=== PATIENT | male | born 1965 | race African-American/Black ===

== ENCOUNTER 2022-12-11 09:13 | Emergency (ER) | payer BC, SELFPAY ==
[2022-12-11 09:33] VITALS: BP 135/82; PULSE 88; RESP 16; TEMP 36.9; O2SAT 100
--- NOTE | 2022-12-11 09:43 | ED.EYEPROB ---
HPI - Eye Problem General Chief complaint: Eye Problems Stated complaint: left eye irritation Time Seen by Provider: 12/11/22 09:38 Source: patient and RN notes reviewed Mode of arrival: ambulatory Limitations: no limitations History of Present Illness HPI Narrative: Patient presents today complaining of left eye redness. Two days ago he was standing next to someone using a weed eater and a rock hit him in the left eye. Denies any current symptoms to include pain, vision changes, drainage, foreign body sensation, photophobia. He has been applying an ice pack and taking ibuprofen. He is not on a blood thinner or daily aspirin. Related Data Allergies Allergy/AdvReac Type Severity Reaction Status Date / Time No Known Allergies Allergy Verified 12/11/22 09:39 Review of Systems Review of Systems: CONSTITUTIONAL: Denies body aches, fever, chills, or sweats. EYES: Denies visual changes, or discharge.+ left eye redness ENT: Denies rhinorrhea, congestion, sore throat, or otalgia. CARDIOVASCULAR: Denies chest pain, palpitations, or edema. RESPIRATORY: Denies cough or dyspnea. GASTROINTESTINAL: Denies abdominal pain, nausea, vomiting, or diarrhea. GENITOURINARY: Denies dysuria or hematuria. SKIN: Denies rash, itching, or wounds. MUSCULOSKELETAL: Denies back pain, joint pain, or myalgia. NEUROLOGIC: Denies headache, numbness, tingling, or weakness. PSYCH: Denies depression or anxiety. PMFSH Comments At time of signature, I have reviewed and agree with nursing past medical, surgical, social and family history unless otherwise noted. Please see nursing chart for further information. There is no relevant family history pertinent to the presenting complaint Exam Narrative: GENERAL: Well-appearing, well-nourished, and in no acute distress. HEAD: Normocephalic, atraumatic. EYES: EOMI. PERRL. Left eye: Subconjunctival hemorrhage to the lateral half of the eye. Lids and lashes normal. Right eye normal. ENT: Mucous membranes pink and moist. NECK: Normal AROM. . CHEST: No respiratory distress. EXTREMITIES: Normal range of motion. No edema. SKIN: Warm, dry, no rash. Capillary refill normal. Normal skin turgor. NEURO: No focal deficits. Alert and oriented x3. Gait steady. PSYCH: Normal affect. No signs of depression or anxiety. Course Course Level of Care: Express Care Visit Vital Signs Vital signs: Vital Signs Temperature 98.5 F 12/11/22 09:33 Pulse Rate 88 12/11/22 09:33 Respiratory Rate 16 12/11/22 09:33 Blood Pressure 135/82 12/11/22 09:33 Pulse Oximetry 100 12/11/22 09:33 Oxygen Delivery Room Air 12/11/22 09:33 Temperature 98.5 F 12/11/22 09:33 Pulse Rate 88 12/11/22 09:33 Respiratory Rate 16 12/11/22 09:33 Blood Pressure 135/82 12/11/22 09:33 Pulse Oximetry 100 12/11/22 09:33 Oxygen Delivery Room Air 12/11/22 09:33 Reviewed. Pt has been instructed to follow up with his PCP regarding his elevated blood pressure today. MDM - Eye Problem MDM Narrative Medical decision making narrative: Exam consistent with subconjunctival hemorrhage. No prescription medications indicated at this time. Anticipatory guidance given. Differential Diagnosis Differential diagnosis: Likely corneal abrasion, subconjunctival hemorrhage and ruptured globe Critical Care Time Critical Care Time Critical Care Time: No Discharge Plan Discharge Clinical Impression: Subconjunctival hemorrhage of left eye Patient Disposition: Home, Self-Care Condition: Stable Instructions: Subconjunctival Hemorrhage (ED) Additional Instructions: The ruptured blood vessel is in your eye will resolve on their own. If you develop any pain or changes in your vision, please follow-up with an eye doctor. Your blood pressure was elevated above 120/80 today at Urgent Care. This puts you above the threshold for follow up. Please schedule a followup visit with your personal physician as soon
== END 2022-12-11 09:59 | disposition home or self-care (01) ==
PROVIDERS: Emergency Provider Nurse Practitioner
DX: H11.32 Conjunctival hemorrhage, left eye (principal)
CPT/HCPCS: 99202; G0463

== ENCOUNTER 2023-01-05 15:12 | Emergency (ER) | payer BC, SELFPAY ==
[2023-01-05 15:22] VITALS: BP 115/71; PULSE 90; RESP 16; TEMP 37.1; O2SAT 100
--- NOTE | 2023-01-05 15:35 | ED.SKABFB ---
HPI - Skin/Abscess/Foreign Bdy General Chief complaint: Skin/Abscess/Foreign Body Stated complaint: Insect Bite Time Seen by Provider: 01/05/23 15:16 Source: patient Mode of arrival: ambulatory Limitations: no limitations History of Present Illness HPI narrative: Arnaldo is a 57-year-old male patient presenting to clinic today with complaints of an insect sting to his left hand. He has pain and swelling to the left dorsal hand near the 5th digit. This occurred prior to arrival. Denies any difficulty breathing, swallowing, or drooling. Related Data Allergies Allergy/AdvReac Type Severity Reaction Status Date / Time No Known Allergies Allergy Verified 01/05/23 15:21 Review of Systems Review of Systems: Pertinent positives per HPI. Patient denies any fever, chills, headache, visual changes, dizziness, cough, shortness of breath, chest pain, palpitations, nausea, vomiting, diarrhea, constipation, abdominal pain, or any urinary issues. PMFSH Comments At the time of my signature, I reviewed and agree with the nursing past medical, surgical, social, and family history. There is no relevant family history pertinent to the patient complaint. Exam Narrative: General: Well-developed, well nourished, in no apparent distress Head: Normocephalic, atraumatic Eyes: Pupils equally round and reactive to light bilaterally, EOM intact, sclera and conjunctive clear, no discharge, lids normal Ears: TMs intact and clear, ear canals clear, no drainage, grossly hearing normal. Nose: Nares patent, no discharge, no inflammation, no sinus tenderness. Mouth: Oral pharynx without lesions or masses, good dentition, MMM. Neck: Supple, trachea midline, no enlargement of anterior or posterior cervical nodes, no thyroid masses or goiter palpable. Cardio: Regular rate and rhythm, s1 and s2 normal, no murmur appreciated. Resp: Clear to auscultation bilaterally, no rhonchi, rales, wheezing or rubs Integumentary: [place], warm, and dry, insect sting to the left dorsal hand near the 5th finger with mild swelling and itching Course Course Emergency Course: Portions of this record may have been created with voice recognition software. Level of Care: Express Care Visit Vital Signs Vital signs: Vital Signs Temperature 37.1 C 01/05/23 15:22 Pulse Rate 90 01/05/23 15:22 Respiratory Rate 16 01/05/23 15:22 Blood Pressure 115/71 01/05/23 15:22 Pulse Oximetry 100 01/05/23 15:22 Oxygen Delivery Room Air 01/05/23 15:22 Temperature 37.1 C 01/05/23 15:22 Pulse Rate 90 01/05/23 15:22 Respiratory Rate 16 01/05/23 15:22 Blood Pressure 115/71 01/05/23 15:22 Pulse Oximetry 100 01/05/23 15:22 Oxygen Delivery Room Air 01/05/23 15:22 Vital signs reviewed MDM - Skin/Abscess/Foreign Bdy MDM Narrative Medical decision making narrative: At the time of visit patient is resting comfortably on the exam table. I suspect patient has and in general allergic reaction due to an insect sting. Will send in prescription for some prednisone, triamcinolone, and discussed Benadryl. Supportive measures were discussed with the patient he voiced understanding discharge instructions agrees to treatment plan. Differential Diagnosis Differential diagnosis: Likely abscess of skin or subcutaneous tissue, cellulitis, insect bites, contact dermatitis and other (General allergic reaction) Discharge Plan Discharge Clinical Impression: Allergic reaction to insect sting Patient Disposition: Home, Self-Care Condition: Stable Instructions: Antibiotic Form, Insect Bite or Sting (ED), General Allergic Reaction (ED) Additional Instructions: Apply triamcinolone cream as directed Take prednisone as directed May take benadryl 25-50mg every 6 hours as needed for itching. May apply ice pack to the affected area for 20 minutes at a time every 1-2 hours Follow up with your PCP in 3-5 days if symptoms persist or sooner if they w
== END 2023-01-05 15:40 | disposition home or self-care (01) ==
PROVIDERS: Emergency Provider Nurse Practitioner Family
DX: T63.481A Toxic effect of venom of other arthropod, accidental (unintentional), initial encounter (principal)
CPT/HCPCS: 99213; G0463

== ENCOUNTER 2023-02-23 14:32 | Outpatient (CLI) | payer BC, SELFPAY ==
[2023-02-23 15:07] LABS: Basophils Percent Auto 0.6 % (0.2-1.2); Eosinophils Absolute Auto 0.2 K/mm3 (0-0.3); Eosinophils Percent Auto 2.9 % (0-4.4); Hematocrit 41.6 % (42.0-52.0); Hemoglobin 13.1 g/dL (14.0-18.0); Immature Granulocyte Absolute 0.03 K/mm3 (0.00-0.031); Immature Granulocyte Percent A 0.4 % (0-0.5); Lymphocytes Absolute Auto 2.48 K/mm3 (0.9-3.2); Lymphocytes Percent Auto 36.3 % (18.3-44.2); Mean Corpuscular HGB Conc 31.5 g/dl (32-36); Mean Corpuscular Hemoglobin 29.6 pg (26-34); Mean Corpuscular Volume 94.1 fl (80-100); Mean Platelet Volume 9.1 fl (7.4-10.4); Monocytes Absolute Auto 0.6 K/mm3 (0.1-0.6); Monocytes Percent Auto 8.6 % (2.6-8.5); Neutrophils Absolute Auto 3.5 K/mm3 (1.3-6.7); Neutrophils Percent Auto 51.2 % (45.5-73.1); Platelet Count Result 232 k/mm3 (150-375); Red Blood Count 4.42 M/mm3 (4.6-6.20); Red Cell Distribution Width 13.2 % (11.5-14.5); White Blood Count 6.8 K/mm3 (4.5-10.0)
[2023-02-23 17:50] LABS: Alanine Aminotransferase 17 U/L (6-50); Albumin Level 4.2 g/dL (3.5-5.1); Alkaline Phosphatase 160 U/L (38-126); Anion Gap 5 mmol/L (8-16); Aspartate Amino Transferase 28 U/L (17-59); Bilirubin,Total 0.4 mg/dL (0.2-1.3); Blood Urea Nitrogen 18 mg/dL (9-20); Calcium 8.8 mg/dL (8.4-10.2); Carbon Dioxide 27 mmol/L (22-30); Chloride 106 mmol/L (98-107); Cholesterol 220 mg/dL (0-200); Estimated Glomerular Filt Rate > 60; Glucose 85 mg/dL (65-110); HDL Direct 96 mg/dL; Sodium 138 mmol/L (137-145); Triglycerides 64 mg/dL (<150)
[2023-02-23 18:02] LABS: LDL Cholesterol Direct 86 mg/dL
[2023-02-23 18:19] LABS: Prostate Specific Antigen 0.9 ng/mL (< OR = 4.0)
== END 2023-02-23 14:33 | disposition home or self-care (01) ==
PROVIDERS: PCP Nurse Practitioner Family; Visit Provider Nurse Practitioner Family
DX: Z13.220 Encounter for screening for lipoid disorders (principal); Z12.5 Encounter for screening for malignant neoplasm of prostate; R07.9 Chest pain, unspecified
CPT/HCPCS: 36415; 80053; 80061; 84153; 84443; 85025; G0103

== ENCOUNTER 2023-03-28 00:32 | Day surgery (SDC) | payer BC, SELFPAY ==
[2023-03-10 15:32] VITALS: BMI 20.7
[2023-03-28 07:11] VITALS: BP 127/83; PULSE 78; RESP 16; TEMP 36.3; O2SAT 100; BMI 20.5
[2023-03-28] MEDS: LACTATED RINGERS 1,000 ML 150 ML IV CONT ×2 (07:20→08:32)
--- NOTE | 2023-03-28 08:11 | PM.HPGS ---
History of Present Illness History of Present Illness Consent: Risks, benefits, and alternatives have been discussed and questions answered. Patient agrees to proceed with procedure. Chief complaint: neoplasm screening Narrative: Sher Lieberman is a 57 year old male here for first screening colonoscopy Review of Systems Constitutional: Constitutional: Denies headache(s) and Denies weakness Eyes: Eyes: Denies blurry vision ENT: Reports Normal hearing present, Denies headache(s) and Denies neck pain Cardiovascular: Cardiovascular: Denies chest pain and Denies dyspnea Respiratory: Respiratory: Denies dyspnea Gastrointestinal: Gastrointestinal: Reports no additional gastrointestinal complaints Genitourinary: Genitourinary: Denies dysuria Musculoskeletal: Musculoskeletal: Denies neck pain Integumentary/Breasts: Skin/Breast: Denies dry skin Neurologic: Reports Normal hearing present, Denies headache(s) and Denies weakness Psychiatric: Psychiatric: Denies anxiety Endocrine: Endocrine: Denies change in body appearance Hematologic/Lymphatic: Hematologic/Lymphatic: Denies easy bleeding Allergic/Immunologic: Allergic/Immunologic: Denies urticaria PMFSH Surgical History Surgical History (Updated 02/21/23 @ 14:30 by Zarina Falcon APRN) History of lumbar spinal fusion anterior approach, no postop complications Family History Family History (Updated 02/21/23 @ 14:27 by Zarina Falcon APRN) Mother Cancer Other Malignant neoplasm of prostate Social History Social History (Updated 02/21/23 @ 14:26 by Zarina Falcon APRN) Smoking packs per day: 0.5 Smoking cigarettes per day: 10.0 Years smoked: 41 Smoking pack-years: 20.50 Smoking status: Current every day smoker Tobacco type: cigarettes Additional smoking assessment comments: Smoking off and on for 25+ years Alcohol intake: current Alcohol use details: occasional Substance use: never Substance use type: does not use Living arrangements: with family Occupation/Education: occupation Spiritual care concerns: No Meds Home Medications and Allergies Home Medications Medication Instructions Recorded Confirmed Type nicotine 10 mg inhalation 1 inh inhalation 4-6XD PRN 02/21/23 03/28/23 Rx cartridge (Nicotrol) nicotine cravings #168 ea Allergies Allergy/AdvReac Type Severity Reaction Status Date / Time No Known Allergies Allergy Verified 03/28/23 07:08 Vital Signs Vital Signs - 24 hr 03/28/23 07:11 Temperature 97.4 F L Pulse Rate 78 Respiratory Rate 16 Blood Pressure 127/83 Pulse Oximetry 100 Oxygen Delivery Room Air Exam Const: General: comfortable and no acute distress HENMT: Face/Nose/Sinus: Normal nares present Eyes: General: appearance normal, both eyes and all related structures Neck: Neck: no JVD Resp: Auscultation: clear to auscultation bilaterally Cardio: Rate: regular rate Rhythm: regular rhythm GI: Inspection: non-distended GI Palp: Yes Soft to palpation Skin: General skin exam: normal color Neuro: General: gait normal Speech: normal speech Extrem: General: normal to inspection Psych: Mental Status: mental status grossly normal Assessment and Plan Assessment and plan (1) Colon cancer screening: Code(s): Z12.11 - Encounter for screening for malignant neoplasm of colon Status: Acute Assessment and Plan: colonoscopy
--- NOTE | 2023-03-28 08:15 | P.PNAN_ITS ---
Anes - Initial Pre Proc Eval Procedure: Operation Date: 03/28/23 08:30 Proposed Procedures p Screening Colonoscopy - Altaf Cedillo MD Date/Time: 03/28/23 08:15 Surgeon: Altaf Cedillo MD Pre Op Diagnosis: neoplasm screening Patient Data Age: 57 Gender: M Height: 1.78 m Weight: 64.9 kg Last Vital Signs Temp 97.4 F L 03/28/23 07:11 Pulse 78 03/28/23 07:11 Resp 16 03/28/23 07:11 BP 127/83 03/28/23 07:11 Pulse Ox 100 03/28/23 07:11 O2 Del Method Room Air 03/28/23 07:11 Allergies Allergy/AdvReac Type Severity Reaction Status Date / Time No Known Allergies Allergy Verified 03/28/23 07:08 Home Medications Medication Instructions Recorded Confirmed Type nicotine 10 mg inhalation 1 inh inhalation 4-6XD PRN 02/21/23 03/28/23 Rx cartridge (Nicotrol) nicotine cravings #168 ea Patient hx anesthesia problems: none Family hx anesthesia problems: none Results Review: All pre-operative results and documents have been reviewed as part of the pre- operative evaluation. [facility] Surgical History Surgical History (Updated 02/21/23 @ 14:30 by Zarina Falcon APRN) History of lumbar spinal fusion anterior approach, no postop complications Family History Family History (Updated 02/21/23 @ 14:27 by Zarina Falcon APRN) Mother Cancer Other Malignant neoplasm of prostate Social History Social History (Updated 02/21/23 @ 14:26 by Zarina Falcon APRN) Smoking packs per day: 0.5 Smoking cigarettes per day: 10.0 Years smoked: 41 Smoking pack-years: 20.50 Smoking status: Current every day smoker Tobacco type: cigarettes Additional smoking assessment comments: Smoking off and on for 25+ years Alcohol intake: current Alcohol use details: occasional Substance use: never Substance use type: does not use Living arrangements: with family Occupation/Education: occupation Spiritual care concerns: No Anes - Eval Final PreProcedure Day of Procedure 03/28/23 08:15 Patient weight: normal Heart: regular rate and rhythm Lungs: clear to auscultation Airway: Mallampati scale class II Neurological: alert and oriented Last oral intake: >/= 8 hours ASA classification: II Emergent: no Anesthetic plan: proceed Anesthesia type and monitoring: general GIVS and standard monitoring Results Review: All pre-operative results and documents have been reviewed as part of the pre- operative evaluation. Informed Consent: The patient's anesthetic plan and its attendant risks and benefits were discussed with the patient/family/POA. Questions were solicited and answers provided to the satisfaction of the patient/family/POA.
[2023-03-28 08:36] VITALS: BP 111/69; PULSE 72; RESP 17; O2SAT 100
[2023-03-28 08:46] VITALS: BP 115/74; PULSE 60; RESP 18; O2SAT 100
[2023-03-28 08:56] VITALS: BP 131/87; PULSE 61; RESP 17; O2SAT 100
== END 2023-03-28 09:10 | disposition home or self-care (01) ==
PROVIDERS: PCP Nurse Practitioner Family; Visit Provider Internal Medicine Gastroenterology
PROC: 0DJD8ZZ Inspection of Lower Intestinal Tract, Via Natural or Artificial Opening Endoscopic (ICD-10-PCS; CPT 45378; principal; 2023-03-28 08:30)
DX: Z12.11 Encounter for screening for malignant neoplasm of colon (principal); K63.5 Polyp of colon; K64.8 Other hemorrhoids; F17.210 Nicotine dependence, cigarettes, uncomplicated; Z80.42 Family history of malignant neoplasm of prostate
CPT/HCPCS: 45385; 88305; J2704; J7120